=== PATIENT | female | born 1980 | race Caucasian/White ===

== ENCOUNTER 2016-10-18 21:10 | Emergency (ER) | payer BC ==
[~2016-10-18] VITALS: Ht 165.1 cm; Wt 106.1 kg
== END 2016-10-18 23:07 | disposition short-term general hospital (02) ==
LOC: ER 21:10
DX: R10.11 Right upper quadrant pain (principal); R11.2 Nausea with vomiting, unspecified
CPT/HCPCS: J1885; J2175; J2405